=== PATIENT | male | born 1970 | race African-American/Black ===

== ENCOUNTER 2020-01-02 19:51 | Emergency (ER) | payer BC ==
[2020-01-02 20:10] VITALS: BP 141/99
[2020-01-02] MEDS ORDERED: NORMAL SALINE 1000 ML 1,000 ML IV ONE (20:20)
--- NOTE | 2020-01-02 20:20 | ER Document Report ---
ED Medical Screen (RME) - General Chief Complaint: Foot Pain Stated Complaint: DIABETIC FOOT ULCER Time Seen by Provider: 01/02/20 20:07 Mode of Arrival: Ambulatory Information source: Patient Notes: Patient is diabetic and presents with a foot wound for the past 6 days. Patient states he went on a long distance trip and felt like he developed a friction blister. Patient has been using Neosporin and peroxide to manage the wound at home. Patient does report elevated blood sugars. Patient does have diabetic neuropathy as well. I have greeted and performed a rapid initial assessment of this patient. A comprehensive ED assessment and evaluation of the patient, analysis of test results and completion of the medical decision making process will be conducted by additional ED providers. - Related Data Allergies/Adverse Reactions: No Known Allergies Allergy (Unverified 01/02/20 20:14) Physical Exam - Vital signs Vitals: Temp Pulse Resp BP Pulse Ox 98.2 F 108 H 16 141/99 H 98 01/02/20 20:08 01/02/20 20:08 01/02/20 20:08 01/02/20 20:08 01/02/20 20:08 - General Notes: Weeping wound to right heel Course - Vital Signs Vital signs: Temp Pulse Resp BP Pulse Ox 98.2 F 108 H 16 141/99 H 98 01/02/20 20:08 01/02/20 20:08 01/02/20 20:08 01/02/20 20:08 01/02/20 20:08
[2020-01-02 21:08] LABS: ABSOLUTE BASOPHILS # (AUTO) 0.1 10^3/uL (0.0-0.2); ABSOLUTE MONOCYTES (AUTO) 0.7 10^3/uL (0.1-1.4); ABSOLUTE NEUT (AUTO) 4.7 10^3/uL (1.7-8.2); EOSINOPHILS % (AUTO) 0.6 % (0-6); HEMATOCRIT 46.3 % (37.9-51.0); HEMOGLOBIN 16.3 g/dL (13.5-17.0); LYMPHOCYTES % (AUTO) 35.3 % (13-45); MEAN CORPUSCULAR HEMOGLOBIN 31.4 pg (27.0-33.4); MEAN CORPUSCULAR HGB CONC 35.3 g/dL (32.0-36.0); MEAN CORPUSCULAR VOLUME 89 fl (80-97); MONOCYTES % (AUTO) 7.8 % (3-13); PLATELET COUNT 162 10^3/uL (150-450); RED BLOOD COUNT 5.19 10^6/uL (4.35-5.55); RED CELL DISTRIBUTION WIDTH 13.4 % (11.5-14.0); SEGMENTED NEUTROPHILS % (AUTO) 55.3 % (42-78); TOTAL CELLS COUNTED % (AUTO) 100 %; WHITE BLOOD COUNT 8.5 10^3/uL (4.0-10.5)
--- NOTE | 2020-01-02 21:17 | RADIOLOGY REPORT (SQ) ---
Right foot three view on 01/02/2020 at 9:00 PM CLINICAL INDICATION: Diabetic foot wound COMPARISON: None FINDINGS: There is no radiopaque foreign body. There are no fractures. Visualized joints are well aligned. No definite plain radiographic evidence of osteomyelitis is noted. IMPRESSION: No acute abnormality.
[2020-01-02 21:35] LABS: ALBUMIN 4.3 g/dL (3.5-5.0); ALKALINE PHOSPHATASE 107 U/L (38-126); ANION GAP 8 (5-19); ASPARTATE AMINO TRANSFERASE 23 U/L (17-59); BILIRUBIN,TOTAL 0.6 mg/dL (0.2-1.3); BLOOD UREA NITROGEN 20 mg/dL (7-20); CALCIUM 9.6 mg/dL (8.4-10.2); CARBON DIOXIDE 25 mmol/L (22-30); CHLORIDE 103 mmol/L (98-107); GLUCOSE 202 mg/dL (75-110); POTASSIUM 3.8 mmol/L (3.6-5.0); TOTAL PROTEIN 8.1 g/dL (6.3-8.2)
== END 2020-01-03 01:23 | disposition left against medical advice (07) ==
LOC: ER 19:51
DX: S90.821A Blister (nonthermal), right foot, initial encounter (principal); M79.671 Pain in right foot; X58.XXXA Exposure to other specified factors, initial encounter; E11.40 Type 2 diabetes mellitus with diabetic neuropathy, unspecified
CPT/HCPCS: 36415; 80053; 85025; 87040; 99281

== ENCOUNTER 2020-01-03 08:04 | Emergency (ER) | payer BC ==
--- NOTE | 2020-01-03 09:36 | ER Document Report ---
ED General - General Chief Complaint: Foot Pain Stated Complaint: FOOT SORE Time Seen by Provider: 01/03/20 09:16 Notes: Presents with pain in his right foot at the site of an ulcer on the lateral heel after wearing shoes with no socks and moving all of his things. He is a diabetic. Mild redness and spots going up the right leg. No fever no chills sugar 250 this morning. Just moved from [place] establishing care at [facility]. - Related Data Allergies/Adverse Reactions: No Known Allergies Allergy (Unverified 01/02/20 20:14) Past Medical History - General Information source: Patient - Social History Smoking Status: Never Smoker Chew tobacco use (# tins/day): No Drug Abuse: None Family History: None Review of Systems - Review of Systems Notes: REVIEW OF SYSTEMS GEN: Denies fever, chills, weight loss ENT: Denies sore throat, nasal discharge, ear pain EYES: Denies blurry vision, eye pain, discharge CV: Denies chest pain, palpitations, edema RESP: Denies cough, shortness of breath, wheezing GI: Denies abdominal pain, nausea, vomiting, diarrhea MSK: Denies joint pain/swelling, edema, SKIN: Rash lesion as above LYMPH: Denies swollen glands/lymph nodes NEURO: Denies headache, focal weakness or numbness, dizziness PSYCH: Denies depression, suicidal or homicidal ideation PHYSICAL EXAMINATION General: No acute distress, well-nourished Head: Atraumatic, normocephalic ENT: Mouth normal, oropharynx moist, no exudates or tonsillar enlargement Eyes: Conjunctiva normal, pupils equal, lids normal Neck: No JVD, supple, no guarding CVS: Normal rate, regular rhythm, no murmurs Resp: No resp distress, equal and normal breath sounds bilaterally GI: Nondistended, soft, no tenderness to palpation, no rebound or guarding Ext: No deformities, no edema, normal range of motion in upper and lower ext Back: No CVA or midline TTP Skin: 3 x 4 cm blister on the right lateral heel surrounded by about a centimeter of erythema. Mild tissue edema surrounding. Lymphatic: No lymphadeopathy noted Neuro: Awake, alert. Face symmetric. GCS 15. Physical Exam - Vital signs Vitals: Temp Pulse Resp BP Pulse Ox 98.4 F 95 21 H 141/87 H 98 01/03/20 08:14 01/03/20 08:14 01/03/20 08:14 01/03/20 08:14 01/03/20 08:14 Course - Re-evaluation Re-evalutation: 01/03/20 15:05 Skin blister with mild surrounding cellulitis in setting of diabetes. No evidence of deeper infection acuity argues against osteomyelitis clinical stability argues against necrotizing infection. They are concerned about some spots on his legs but on exam is like bug bites and are probably unrelated as they are bilateral Going to have him leave the [place] intact follow-up with wound care advised and start him on doxycycline. No clinical evidence of DKA sugars in the 200s at home. I have discussed with the patient there likely diagnosis, aftercare plan, follow-up plans and my usual and customary return precautions. They verbalized understanding of this. - Vital Signs Vital signs: Temp Pulse Resp BP Pulse Ox 97.8 F 90 18 125/85 97 01/03/20 11:13 01/03/20 09:58 01/03/20 09:58 01/03/20 09:58 01/03/20 09:58 Discharge - Discharge Clinical Impression: Blister (nonthermal), right foot, initial encounter, Cellulitis of right foot Condition: Good Disposition: HOME, SELF-CARE Instructions: Cellulitis ([facility]) Prescriptions: Doxycycline Hyclate 100 mg PO BID #20 tablet.
[2020-01-03 10:03] VITALS: BP 125/85
== END 2020-01-03 10:30 | disposition home or self-care (01) ==
LOC: ER 08:04
DX: L03.115 Cellulitis of right lower limb (principal); S90.821A Blister (nonthermal), right foot, initial encounter; E11.9 Type 2 diabetes mellitus without complications; X58.XXXA Exposure to other specified factors, initial encounter; Y93.E6 Activity, residential relocation
CPT/HCPCS: 99283